=== PATIENT | female | born 1935 | race American Indian/Alaskan Native ===

== ENCOUNTER 2018-09-25 16:52 | Emergency (ER) | payer MEDICARE, OTHER ==
--- NOTE | 2018-09-25 17:57 | Event Note ---
ED Screening Note Date of service: 09/25/18 Time: 16:59 ED Screening Note: 82 y/o y/o female c/o earache sore throat and wheezing. Admit. wheezing This initial assessment/diagnostic orders/clinical plan/treatment(s) is/are subject to change based on patients health status, clinical progression and re- assessment by fellow clinical providers in the ED. Further treatment and workup at subsequent clinical providers discretion. Patient/guardian urged not to elope from the ED as their condition may be serious if not clinically assessed and managed. Initial orders include:
--- NOTE | 2018-09-25 18:42 | Emergency Department Report ---
Minor Respiratory - HPI Chief Complaint: Earache Stated Complaint: RT EAR/SORE THROAT/KATHRYN Time Seen by Provider: 09/25/18 18:42 Duration: 1 Day Pain Location: Throat, Other (generalize) Severity: severe (generalize a can at 10/10) Minor Respiratory: Yes Rhinorrhea, Yes Sore Throat, Yes Able to Tolerate Fluids, Yes Ear Pain (right ear pain), Yes Cough (dry cough), Yes Fever (she reports fever on and off), No Sick Contacts, No Hemoptysis, No Chest Pain, No Shortness of Breath Other History: This is a 82-year-old female here reports that she has right ear pain, sore throat cough that started yesterday. Since she has been having fever on and off and she has been taking [id number] cough and cold medication but patient is she has drainage in the back of throat cancer per night. Denies any shortness of breath or chest pain. Reports generalized pain and also pain to throat at 10/10. Patient is a history of diabetes and high blood pressure. She reports that she had had pneumonia in the past that was hospital related after surgery. ED Review of Systems ROS: Stated complaint: RT EAR/SORE THROAT/KATHRYN Other details as noted in HPI Constitutional: fever ENT: ear pain, throat pain, congestion Respiratory: cough, wheezing. denies: shortness of breath, SOB with exertion, SOB at rest, stridor Cardiovascular: denies: chest pain, palpitations, dyspnea on exertion, orthopnea, edema, syncope Gastrointestinal: denies: abdominal pain, nausea, vomiting Musculoskeletal: denies: back pain, joint swelling, arthralgia Skin: denies: rash Neurological: denies: headache ED Past Medical Hx - Past Medical History Previous Medical History?: Yes Hx Hypertension: Yes Hx Diabetes: Yes - Family History Family history: hypertension - Social History Smoking Status: Never Smoker Substance Use Type: None - Medications Home Medications: Home Medications Medication Instructions Recorded Confirmed Last Taken Type ALBUTEROL Inhaler (OR & NICU) 2 puff IH Q6H PRN #1 inhalation 09/26/18 Unknown Rx [ProAir HFA Inhaler] Amoxicillin/K Clav Tab [Augmentin 1 tab PO Q12HR #20 tab 09/26/18 Unknown Rx 875MG TAB] Cetirizine HCl [ZyrTEC] 10 mg PO QAM 14 Days #14 capsule 09/26/18 Unknown Rx guaiFENesin/CODEINE [Robitussin AC] 10 ml PO QHS PRN #70 oral.liqd 09/26/18 Unknown Rx predniSONE [Deltasone] 50 mg PO QDAY 3 Days #3 tab 09/26/18 Unknown Rx Minor Respiratory Exam - Exam General: Vital signs noted. No distress. Alert and acting appropriately. This is a 82-year-old female well-nourished well-developed in no acute distress. HEENT: Yes Moist Mucous Membranes, Yes Rhinorrhea (with nasal congestion), No Pharyngeal Erythema, No Pharyngeal Exudates, No Conjuctival Injection, No Frontal Tenderness, No Maxillary Tenderness Ear: Neither TM Bulge, Neither TM Erythema (middle ear effusion bilaterally), Neither EAC Pain, Neither EAC Discharge Neck: Yes Supple (no C-spine tenderness. Normal range of motion), No Adenopathy Lungs: Yes Wheezes (to upper lung benítez.), Yes Cough (Dry), No Ronchi, No Stridor, No Labored Respirations, No Retractions, No Use of Accessory Muscles, No Other Abnormal Lung Sounds Heart: Yes Regular, No Murmur Abdomen: Yes Normal Bowel Sounds (normal bowel sounds), No Tenderness, No Peritoneal Signs Skin: No Rash, No Edema Neurologic: Alert and oriented, no deficits. Musculoskeletal: Unremarkable. No cce. + 2 pulses in all extremities, no neurovascular compromise ED Course Vital Signs 09/25/18 16:59 Temperature 98.2 F Pulse Rate 91 H Respiratory 20 Rate Blood Pressure 155/82 O2 Sat by Pulse 95 Oximetry - Reevaluation(s) Reevaluation #1: 09/25/18 21:12 Patient had nebulizer treatment to include Xopenex 1.26 mg and Atrovent 0.5 mg for wheezing and cough and upper reevaluation she still has some wheezing and her pulse ox was at 95% on room air prior to nebulizer treatment and status post nebulizer pulse ox is 93% on room air. Patient said that she is feeling better but she still wheezing and so we will give her another treatment and reevaluate her oxygen level after treatment is complete. ED Medical Decision Making - Radiology Data Radiology results: report reviewed Chest x-ray dictated by radiologist report reviewed by myself Findings [facility] [address] [place] [address] XRay Report Signed Patient: GALINDO RAIN MR#: [id number] : 1935 Acct:[id number] Age/Sex: 82 / F ADM Date: 09/25/18 Loc: ED Attending Dr: Ordering Physician: KERRIE SUBRAMANIAN Date of Service: 09/25/18 Procedure(s): XR chest routine 2V Accession Number(s): [id number] cc: KERRIE SUBRAMANIAN Fluoro Time In Minutes: PROCEDURE: Chest. TECHNIQUE: PA and lateral chest radiographs were obtained. HISTORY: Wheezing. COMPARISONS: None. FINDINGS: The heart size is normal. There is mild tortuosity and calcification in the thoracic aorta. The lungs are grossly clear. There are no pleural effusions. The soft tissues and regional skeleton are unremarkable. IMPRESSION: No evidence of acute disease. This document is electronically signed by Morro Polanco MD., September 25 2018 06:43:37 PM ET Transcribed By: MRM Dictated By: MORRO POLANCO MD Electronically Authenticated By: MORRO POLANCO MD Signed Date/Time: 09/25/181844 DD/ 35 TD/TT: 09/25/181735 - Medical Decision Making This is a 82-year-old female here with cough, congestion, earache sore throats. His extremity findings for a dry cough with congested air and we did not pursue upper lung benítez. She was given Xopenex 1.26 mg and Atrovent 0.5 mg nebulizer 2 rounds. She was given a second on his first rounds up and reevaluation her O2 sat was 93% and she states that she felt better. After second round of nebulizer treatment patient O2 sat is 96% she says she is feeling much better and she has no wheezing. I discussed results of chest x-ray, diagnosis and treatment plan and she is in agreement. Patient also received Cipro as well 125 mg im and emergency room, she is stable at present. Vital signs stable she is afebrile and discharged home in stable condition to follow up with her primary care physician in one to 2 days. She is given prescription for Zyrtec, guaifenesin with codeine cough syrup, a beer all [place] and prednisone 5 days. - Differential Diagnosis PNA, bronchitis, upper respiratory with cough and congestion Critical care attestation.: If time is entered above; I have spent that time in minutes in the direct care of this critically ill patient, excluding procedure time. ED Disposition Clinical Impression: URI with cough and congestion Acute bronchitis Qualifiers: Bronchitis organism: unspecified organism Qualified Code(s): J20.9 - Acute bronchitis, unspecified Acute pharyngitis, unspecified Qualifiers: Pharyngitis/tonsillitis etiology: unspecified etiology Qualified Code(s): J02.9 - Acute pharyngitis, unspecified Disposition: - TO HOME OR SELFCARE Is pt being admited?: No Does the pt Need Aspirin: No Condition: Stable Instructions: Acute Bronchitis (ED), Upper Respiratory Infection (ED), Acute Cough (ED) Additional Instructions: Please follow up with the primary care physician in one to 2 days or return to emergency room if your symptoms worsens Take medication as prescribed Do not drive or operate machinery while taking and guaifenesin with codeine cough syrup as this medication causes drowsiness Referrals: LJ HAWKINS MD [Primary Care Provider] - 09/27/18 12:33 am Masood, primary care physician [Other] - 09/27/18 Forms: Accompanied Note
[2018-09-25] MEDS ORDERED: XOPENEX IH ONE ×2 (18:44→21:14)
[2018-09-25] MEDS ORDERED: ATROVENT IH ONE ×2 (18:45→21:14)
--- NOTE | 2018-09-25 18:45 | XRay Report ---
PROCEDURE: Chest. TECHNIQUE: PA and lateral chest radiographs were obtained. HISTORY: Wheezing. COMPARISONS: None. FINDINGS: The heart size is normal. There is mild tortuosity and calcification in the thoracic aorta. The lungs are grossly clear. There are no pleural effusions. The soft tissues and regional skeleton are unrema rkable. IMPRESSION: No evidence of acute disease. This document is electronically signed by Morro Salinas MD., September 25 2018 06:43:37 PM ET
[2018-09-25] MEDS ORDERED: SOLU-Medrol IM ONE (18:48)
[2018-09-26 00:58] VITALS: BP 141/69
== END 2018-09-26 00:58 | disposition home or self-care (01) ==
LOC: ED 16:52
DX: J06.9 Acute upper respiratory infection, unspecified (principal); J20.9 Acute bronchitis, unspecified; J02.9 Acute pharyngitis, unspecified; I10 Essential (primary) hypertension; E11.9 Type 2 diabetes mellitus without complications; Z79.899 Other long term (current) drug therapy; Z88.6 Allergy status to analgesic agent
CPT/HCPCS: 71046; 94640; 96372; 99283; J2930